=== PATIENT | female | born 1980 | race Caucasian/White ===

== ENCOUNTER 2018-08-31 14:25 | Emergency (ER) | payer SELFPAY ==
[~2018-08-31] VITALS: Ht 157.4 cm; Wt 65.3 kg
[~2018-08-31 14:25] MED LIST: BACTRIM DS 8001 TA1 PO
[2018-08-31 15:21] LABS: BASO % 0.2 % (0.0-1.0); EOS # 0.1 10*3/uL (0.0-0.4); EOS % 0.5 % (1.0-4.0); HEMATOCRIT 44.6 % (37.0-47.0); HEMOGLOBIN 14.6 g/dl (12.0-16.0); LYMPH # 0.6 10*3/uL (1.3-4.4); LYMPH % 5.6 % (27.0-41.0); MEAN CELL VOLUME 85.4 fl (81.0-99.0); MEAN CORPUSCULAR HGB CONC 32.7 g/dl (33.0-37.0); MEAN PLATELET VOLUME 10.2 fl (9.6-12.3); MONO # 0.6 10*3/uL (0.1-1.0); NEUT # 9.1 10*3/uL (2.3-7.9); NEUT % 87.5 % (47.0-73.0); PLATELET COUNT AUTOMATED 291 10*3/uL (130-400); RED BLOOD COUNT 5.22 10*6/uL (4.10-5.10); RED CELL DISTRI WIDTH 12.8 % (0-14.5); WHITE BLOOD COUNT 10.4 10*3/uL (4.8-10.8)
[2018-08-31 15:36] LABS: ALBUMIN 4.1 gm/dl (3.1-4.5); ALKALINE PHOSPHATASE 64 U/L (45-117); BUN 14 mg/dl (7-24); CHLORIDE 108 mmol/L (98-107); CREATININE 0.83 mg/dL (0.55-1.02); LIPASE 155 U/L (73-393); POTASSIUM 3.9 mmol/L (3.5-5.1); SGOT/AST 17 IU/L (3-35); SGPT/ALT 39 U/L (12-78); SODIUM 140 mmol/L (136-145); TOTAL PROTEIN 8.1 gm/dL (6.4-8.2)
[2018-08-31 15:45] LABS: BILIRUBIN NEGATIVE (NEGATIVE); BLOOD 1+ (NEGATIVE); CLARITY SL CLOUDY (CLEAR); COLOR YELLOW (YELLOW); GLUCOSE NEGATIVE (NEGATIVE); KETONE NEGATIVE (NEGATIVE); LEUKO ESTERASE 1+ (NEGATIVE); NITRITE NEGATIVE (NEGATIVE); PH 5.5 (5.0-9.0); SPECIFIC GRAVITY >= 1.030 (1.005-1.030); UROBILINOGEN 0.2 E.U./dl (0.2-1.0)
[2018-08-31 15:53] LABS: BACTERIA 2+; MUCOUS TRACE
[2018-08-31] MEDS ORDERED: ZOFRAN4 MG PO (15:58)
== END 2018-08-31 16:20 | disposition home or self-care (01) ==
LOC: ED 14:25
PROVIDERS: Nurse Practitioner Family
DX: K52.9 Noninfective gastroenteritis and colitis, unspecified (principal)

== ENCOUNTER → 2021-08-20 | Outpatient (CLI) | payer OTHER ==
[~2021-08-20] MED LIST changes: +ZOFRAN4 MG PO
== END | disposition home or self-care (01) ==
LOC: COVID19 15:34
PROVIDERS: ATTEND Internal Medicine
DX: U07.1 COVID-19 (principal)

== ENCOUNTER 2022-03-14 18:07 | Emergency (ER) | payer OTHER ==
[2022-03-14 18:42] LABS: BASO # 0.1 10*3/uL (0.0-0.1); BASO % 0.5 % (0.0-1.0); EOS # 0.2 10*3/uL (0.0-0.4); EOS % 1.7 % (1.0-4.0); HEMATOCRIT 40.4 % (37.0-47.0); LYMPH % 28.4 % (27.0-41.0); MEAN CELL VOLUME 86.3 fl (81.0-99.0); MEAN CORPUSCULAR HGB CONC 32.4 g/dl (33.0-37.0); MEAN PLATELET VOLUME 9.7 fl (9.6-12.3); MONO # 0.8 10*3/uL (0.1-1.0); MONO % 7.5 % (3.0-9.0); NEUT # 6.4 10*3/uL (2.3-7.9); NEUT % 61.3 % (47.0-73.0); PLATELET COUNT AUTOMATED 315 10*3/uL (130-400); RED BLOOD COUNT 4.68 10*6/uL (4.10-5.10); RED CELL DISTRI WIDTH 13.1 % (0-14.5); WHITE BLOOD COUNT 10.5 10*3/uL (4.8-10.8)
[2022-03-14 19:03] LABS: ALKALINE PHOSPHATASE 59 U/L (45-117); BUN 19 mg/dl (7-24); CHLORIDE 107 mmol/L (98-107); CPK 86 U/L (26-192); CREATININE 1.17 mg/dL (0.55-1.02); POTASSIUM 4.1 mmol/L (3.5-5.1); SGOT/AST 14 IU/L (3-35); SGPT/ALT 19 U/L (12-78); SODIUM 135 mmol/L (136-145); TOTAL PROTEIN 7.3 gm/dL (6.4-8.2)
[2022-03-14 19:10] LABS: ETHYL ALCOHOL < 3.0 mg/dl (<3)
[2022-03-14 20:41] LABS: BILIRUBIN Negative (Negative); BLOOD 3+ (Negative); CLARITY Clear (Clear); COLOR Red (Yellow); GLUCOSE Negative (Negative); KETONE Negative (Negative); LEUKO ESTERASE 1+ (Negative); NITRITE Negative (Negative); UROBILINOGEN 0.2 E.U./dl (0.0-1.0)
[2022-03-14 20:48] LABS: BACTERIA 1+; EPITHELIAL CELLS 0-2; RBC TNTC rbc/hpf (0-2)
[2022-03-14 20:49] LABS: URINE AMPHETAMINES < 1000 (1000ng/ml); URINE BARBITURATES < 200 (200ng/ml); URINE BENZODIAZEPINES < 200 (200ng/ml); URINE CANNABINOIDS (THC) < 50 (50ng/ml); URINE COCAINE < 300 (300ng/ml); URINE METHADONE < 300 (300ng/ml); URINE OPIATES < 300 (300ng/ml)
[2022-03-14 20:51] LABS: URINE PHENCYCLIDINE < 25 (25ng/ml)
[2022-03-14] MEDS ORDERED: KEFLEX 500 MG E2 CAP PO (21:05)
== END 2022-03-14 21:25 | disposition home or self-care (01) ==
LOC: ED 18:07
PROVIDERS: Emergency Medicine
DX: R56.9 Unspecified convulsions (principal); R41.0 Disorientation, unspecified; F17.210 Nicotine dependence, cigarettes, uncomplicated; Z79.899 Other long term (current) drug therapy

== ENCOUNTER 2022-09-11 10:00 | Emergency (ER) | payer SELFPAY ==
[~2022-09-11] VITALS: Wt 61.1 kg
[~2022-09-11 10:00] MED LIST changes: +KEFLEX 500 MG E2 CAP PO
[2022-09-11 11:37] LABS: BASO % 0.5 % (0.0-1.0); EOS # 0.1 10*3/uL (0.0-0.4); EOS % 1.4 % (1.0-4.0); HEMATOCRIT 40.9 % (37.0-47.0); LYMPH # 1.3 10*3/uL (1.3-4.4); LYMPH % 16.5 % (27.0-41.0); MEAN CELL VOLUME 83.3 fl (81.0-99.0); MEAN CORPUSCULAR HGB 27.5 pg (27.0-31.0); MEAN PLATELET VOLUME 9.6 fl (9.6-12.3); MONO # 0.6 10*3/uL (0.1-1.0); MONO % 7.1 % (3.0-9.0); NEUT % 74.3 % (47.0-73.0); PLATELET COUNT AUTOMATED 303 10*3/uL (130-400); RED BLOOD COUNT 4.91 10*6/uL (4.10-5.10); RED CELL DISTRI WIDTH 12.9 % (0-14.5); WHITE BLOOD COUNT 8.1 10*3/uL (4.8-10.8)
[2022-09-11 11:45] LABS: INTERNATIONAL NORM RATIO 0.9 (2.0-3.5)
[2022-09-11 11:51] LABS: ALKALINE PHOSPHATASE 57 U/L (46-116); BUN 10 mg/dl (9-23); CHLORIDE 104 mmol/L (98-107); POTASSIUM 3.9 mmol/L (3.4-5.1); SGPT/ALT 16 U/L (10-49); TOTAL PROTEIN 7.3 gm/dL (6.0-8.0)
[2022-09-11 11:52] LABS: ETHYL ALCOHOL < 3.0 mg/dl (<3)
[2022-09-11 13:52] LABS: BILIRUBIN Negative (Negative); BLOOD Trace-Lysed (Negative); CLARITY Cloudy (Clear); COLOR Yellow (Yellow); GLUCOSE Negative (Negative); KETONE Trace (Negative); LEUKO ESTERASE 2+ (Negative); NITRITE Negative (Negative); SPECIFIC GRAVITY 1.015 (1.001-1.030); UROBILINOGEN 0.2 E.U./dl (0.0-1.0)
[2022-09-11 14:01] LABS: URINE AMPHETAMINES Negative (1000ng/ml); URINE BARBITURATES Negative (200ng/ml); URINE BENZODIAZEPINES Negative (200ng/ml); URINE CANNABINOIDS (THC) Negative (50ng/ml); URINE COCAINE Negative (300ng/ml); URINE METHADONE Negative (300ng/ml); URINE OPIATES Negative (300ng/ml); URINE PHENCYCLIDINE Negative (25ng/ml)
[2022-09-11 14:16] LABS: BACTERIA 1+; WBC 16-20 wbc/hpf (0-5)
== END 2022-09-11 15:15 | disposition home or self-care (01) ==
LOC: ED 10:00
PROVIDERS: Physician Assistant
DX: R56.9 Unspecified convulsions (principal); Z87.891 Personal history of nicotine dependence; Z79.899 Other long term (current) drug therapy

== ENCOUNTER 2024-02-08 08:11 | Emergency (ER) | payer SELFPAY ==
[~2024-02-08] VITALS: Ht 157.4 cm; Wt 63.5 kg
[2024-02-08 08:36] LABS: BILIRUBIN Negative (Negative); BLOOD 2+ (Negative); CLARITY Turbid (Clear); COLOR Yellow (Yellow); GLUCOSE Negative (Negative); KETONE Trace (Negative); LEUKO ESTERASE 3+ (Negative); NITRITE Positive (Negative); SPECIFIC GRAVITY 1.015 (1.001-1.030)
[2024-02-08 08:50] LABS: BACTERIA 2+; RBC 21-30 rbc/hpf (0-2); WBC TNTC wbc/hpf (0-5)
[2024-02-08] MEDS ORDERED: Ceftriaxone Sodium 1 GM/10 ML SYR IV ONE (08:55)
[2024-02-08 09:17] LABS: BASO % 0.3 % (0.0-1.0); EOS # 0.1 10*3/uL (0.0-0.4); EOS % 0.9 % (1.0-4.0); HEMATOCRIT 39.7 % (37.0-47.0); LYMPH # 1.4 10*3/uL (1.3-4.4); LYMPH % 9.2 % (27.0-41.0); MEAN CELL VOLUME 82.2 fl (81.0-99.0); MEAN CORPUSCULAR HGB 26.5 pg (27.0-31.0); MEAN CORPUSCULAR HGB CONC 32.2 g/dl (33.0-37.0); MEAN PLATELET VOLUME 9.7 fl (9.6-12.3); MONO # 1.4 10*3/uL (0.1-1.0); MONO % 9.2 % (3.0-9.0); NEUT # 12.1 10*3/uL (2.3-7.9); NEUT % 79.9 % (47.0-73.0); PLATELET COUNT AUTOMATED 291 10*3/uL (130-400); RED BLOOD COUNT 4.83 10*6/uL (4.10-5.10); WHITE BLOOD COUNT 15.1 10*3/uL (4.8-10.8)
[2024-02-08 09:40] LABS: ALKALINE PHOSPHATASE 95 U/L (46-116); BUN 9 mg/dl (9-23); CHLORIDE 103 mmol/L (98-107); POTASSIUM 3.7 mmol/L (3.4-5.1); SGPT/ALT 48 U/L (5-49); TOTAL PROTEIN 7.3 gm/dL (6.0-8.0)
[2024-02-08] MEDS ORDERED: CIPROFLOXACIN500 M4 PO (10:15)
== END 2024-02-08 10:25 | disposition home or self-care (01) ==
LOC: ED 08:11
PROVIDERS: Internal Medicine
DX: N39.0 Urinary tract infection, site not specified (principal); R50.9 Fever, unspecified; R11.10 Vomiting, unspecified

== ENCOUNTER 2024-09-28 16:13 | Emergency (ER) | payer BC ==
[~2024-09-28] VITALS: Wt 63.5 kg
[~2024-09-28 16:13] MED LIST changes: +CIPROFLOXACIN500 M4 PO
[2024-09-28 18:20] LABS: BASO % 0.3 % (0.0-1.0); EOS % 0.1 % (1.0-4.0); MEAN CELL VOLUME 82.7 fl (81.0-99.0); MEAN CORPUSCULAR HGB 26.8 pg (27.0-31.0); MEAN CORPUSCULAR HGB CONC 32.4 g/dl (33.0-37.0); MEAN PLATELET VOLUME 9.6 fl (9.6-12.3); MONO # 0.7 10*3/uL (0.1-1.0); MONO % 4.5 % (3.0-9.0); NEUT # 13.8 10*3/uL (2.3-7.9); NEUT % 86.7 % (47.0-73.0); PLATELET COUNT AUTOMATED 332 10*3/uL (130-400); RED BLOOD COUNT 4.96 10*6/uL (4.10-5.10); RED CELL DISTRI WIDTH 12.8 % (0-14.5); WHITE BLOOD COUNT 15.9 10*3/uL (4.8-10.8)
[2024-09-28 18:39] LABS: ALKALINE PHOSPHATASE 52 U/L (46-116); BUN 12 mg/dl (9-23); CHLORIDE 104 mmol/L (98-107); LIPASE 39 U/L (12-53); POTASSIUM 3.5 mmol/L (3.4-5.1); SGPT/ALT 17 U/L (5-49); TOTAL PROTEIN 7.4 gm/dL (6.0-8.0)
[2024-09-28 19:02] LABS: BILIRUBIN Negative (Negative); BLOOD 3+ (Negative); CLARITY Clear (Clear); COLOR Yellow (Yellow); GLUCOSE Negative (Negative); KETONE 1+ (Negative); LEUKO ESTERASE 1+ (Negative); NITRITE Negative (Negative); PH 5.5 (4.5-8.0); UROBILINOGEN 0.2 E.U./dl (0.0-1.0)
[2024-09-28 19:16] LABS: MUCOUS 1+; RBC TNTC rbc/hpf (0-2)
[2024-09-28] MEDS ORDERED: CIPRO500 MG PO (19:19)
== END 2024-09-28 20:01 | disposition home or self-care (01) ==
LOC: ED 16:13
PROVIDERS: Emergency Medicine; Nurse Practitioner Family
DX: N39.0 Urinary tract infection, site not specified (principal)

== ENCOUNTER 2024-10-23 16:46 | Emergency (ER) | payer BC ==
[~2024-10-23] VITALS: Ht 157.4 cm; Wt 68.0 kg
[~2024-10-23 16:46] MED LIST changes: +CIPRO500 MG PO
[2024-10-23] MEDS ORDERED: SERTRALINE HYD100 MG PO (17:06)
[2024-10-23] MEDS ORDERED: LEVETIRACETAM500 MG PO (17:06)
[2024-10-23] MEDS ORDERED: Ketorolac Tromethamine 15 MG/ML VIAL IV ONE (17:55)
[2024-10-23] MEDS ORDERED: SODIUM CHLORIDE 0.9% 1,000 ML IV ONE (17:55)
[2024-10-23 18:12] LABS: BASO % 0.3 % (0.0-1.0); EOS # 0.1 10*3/uL (0.0-0.4); EOS % 1.1 % (1.0-4.0); HEMATOCRIT 42.4 % (37.0-47.0); MEAN CELL VOLUME 83.5 fl (81.0-99.0); MEAN CORPUSCULAR HGB 26.4 pg (27.0-31.0); MEAN CORPUSCULAR HGB CONC 31.6 g/dl (33.0-37.0); MEAN PLATELET VOLUME 9.7 fl (9.6-12.3); MONO # 0.5 10*3/uL (0.1-1.0); MONO % 5.2 % (3.0-9.0); NEUT # 6.8 10*3/uL (2.3-7.9); NEUT % 73.5 % (47.0-73.0); PLATELET COUNT AUTOMATED 314 10*3/uL (130-400); RED BLOOD COUNT 5.08 10*6/uL (4.10-5.10); RED CELL DISTRI WIDTH 12.5 % (0-14.5); WHITE BLOOD COUNT 9.2 10*3/uL (4.8-10.8)
[2024-10-23 18:26] LABS: BILIRUBIN Negative (Negative); BLOOD 3+ (Negative); CLARITY Clear (Clear); COLOR Yellow (Yellow); GLUCOSE Negative (Negative); KETONE Trace (Negative); LEUKO ESTERASE Negative (Negative); NITRITE Negative (Negative); PH 5.5 (4.5-8.0); SPECIFIC GRAVITY 1.025 (1.001-1.030); UROBILINOGEN 0.2 E.U./dl (0.0-1.0)
[2024-10-23 18:32] LABS: BUN 9 mg/dl (9-23); CHLORIDE 107 mmol/L (98-107); POTASSIUM 3.9 mmol/L (3.4-5.1)
[2024-10-23] MEDS ORDERED: Ketorolac Tromethamine 30 MG/ML VIAL IM ONE (18:35)
[2024-10-23 18:36] LABS: BACTERIA 1+; RBC 31-40 rbc/hpf (0-2)
[2024-10-23 18:37] LABS: CALCIUM OXALATE CRYSTALS Trace
[2024-10-23] MEDS ORDERED: MELOXICAM15 MG PO (18:39)
[2024-10-23] MEDS ORDERED: CIPRO500 MG PO (18:39)
== END 2024-10-23 19:11 | disposition home or self-care (01) ==
LOC: ED 16:46
PROVIDERS: Emergency Medicine
DX: N39.0 Urinary tract infection, site not specified (principal)